=== PATIENT | female | born 1985 | race Caucasian/White ===

== ENCOUNTER 2017-08-22 23:50 | Emergency (ER) | payer OTHER ==
[~2017-08-22] VITALS: Ht 175.3 cm; Wt 61.4 kg
[~2017-08-22 23:50] MED LIST: MECL-114 PO; MULT-1018 PO; PROM25TA14 PO
[2017-08-22 23:52] VITALS: BP 109/70; PULSE 83; RESP 18; O2SAT 96
--- NOTE | 2017-08-23 00:40 | ED.REPORT ---
HPI- Female Date of Service Aug 23, 2017 ED Provider: Abdoul Díaz MD Pt is a 32 year old female with a history of Lichen sclerosus who presents to the ED c/o left vulva pain onset 1-2 days. Additional symptoms include left vulva swelling, abdominal pain, and vaginal discharge. She denies any fevers. Pt has gone to a doctor recently for her chronic yeast infections, and her doctor thought she might have endometriosis but denied genital herpes. Nursing Notes Stated Complaint: VAGINAL PAIN/SWELLING Chief Complaint: Female Abdominal Pain Nursing Notes Reviewed: Yes Allergies: Coded Allergies: Penicillins (Verified Allergy, Intermediate, HIVES, 08/23/17) latex (Verified Allergy, Intermediate, Hives, 08/23/17) ondansetron (Verified Allergy, Intermediate, HIVES, 08/23/17) Scheduled Meclizine (Bonine) 25 Mg Tab.chew 25 MG PO TID Multivitamin (Multi Vitamin Daily) 1 Each Tablet 1 EACH PO DAILY Scheduled PRN Promethazine (Promethazine) 25 Mg Tablet 25 MG PO Q6H PRN PRN For Nausea General Time Seen by MD: 00:39 Chief Complaint Vulva pain left Hx Obtained From: Patient Arrived By: Walk-in Sudden in Onset?: Yes Onset Occurred: Yesterday Symptom Duration: Constant Quality: Painful Severity: Current: Mild Severity: Maximum: Moderate Recent Healthcare: Recent doctor visit Similar Sx Previous: Yes Past Medical History Past Medical History Notes: PCP: naturopathic clinic in [facility] Past Medical History Celiac disease Lichen planus Lichen sclerosus Past Surgical History Breast augmentation Smoking History Never Smoker Social History Other Social History: Ambulatory Status Independent Review of Systems Left vulva pain Left vulva swelling Constitutional: Denies: Fever GI: Reports: Abdominal pain Female: Reports: Vaginal discharge Complete sys rev & neg: except as marked. Physical Exam Initial Vital Signs Vital Signs (First) Date Time Temp Pulse Resp B/P Pulse Ox O2 Delivery O2 Flow Rate FiO2 08/22/17 23:52 36.8 83 18 109/70 96 Room Air Initial VS: Reviewed, Vital signs normal Head / Eyes: Atraumatic, Normocephalic Neck: Supple, Full range of motion Respiratory: No respiratory distress Extremities: Vascular intact, Neuro intact, No swelling, No tenderness Skin: Warm, Dry, No cyanosis Neurologic: Alert, Oriented, Nonfocal Psychiatric: Mood/affect normal, Behavior normal, Normal thought content Female Genitourinary: No bleeding Mild swelling and tenderness to left vulva, no erythema General/Constitutional: Awake, Alert Interpretation & Diagnostics Lab Results Interpretation Test 08/23/17 00:24 Hold Urine Received (Received) Re-Eval/Medical Decision Med Decision/Clinical Course 32-year-old female with a history of vulvar lichen sclerosis presents with left labial swelling. This does not seem to be associated with the lichen sclerosis as there are no skin changes. I suspect the mild cellulitis and will treat with antibiotics. Source of Hx: Old records Re-Evaluation/Progress : Time of Eval: 01:02 Patient Status: Condition improved Re-Evaluation/Progress Note: Patient rechecked. Discussed plan for discharge. Patient understands and agrees with plan. F/U instructions and RTER warnings given. All questions addressed at this time. Counseled Regarding: Diagnosis, Lab results, Need for follow-up, When/why to return to ED Discharge & Departure Impression: Primary Impression: Cellulitis of labia majora Disposition: Home Discharge Condition All VS Reviewed: Yes Condition: Stable Patient Instructions: Cellulitis (ED) Additional Instructions: There is swelling and inflammation of the left labia majora, possibly an infection. This does not appear to be from your lichen sclerosis. Recommend doxycycline 100 mg by mouth twice a day, #20 dispensed. Avoid excessive sun exposure with this medication. Follow-up with your primary doctor in the next week or so for recheck. Return to emergency room if there is significant worsening, if you develop fever, or if an abscess forms. Referrals: Roberto Escalante MD (PCP) Scribe Attestation Portions of this note were transcribed by Jaycee Fernando. I, Dr. Díaz, personally performed the history, physical exam and medical decision-making; I reviewed and confirmed the accuracy of the information in the transcribed note. copies to: Roberto Escalante MD, Abdoul Negron MD Aug 23, 2017 00:40 Jaycee Fernando Aug 23, 2017 00:58
[2017-08-23] MEDS ORDERED: Mupirocin 2% 22 Gm Ointment TOPICAL ONE (01:25)
[2017-08-23 01:34] VITALS: BP 104/64; PULSE 67; RESP 16; O2SAT 96
[2017-08-23] MEDS ORDERED: _Doxycycline 100 mg Tablet PO SCH (08:30)
== END 2017-08-23 01:35 | disposition home or self-care (01) ==
LOC: SED 23:50
DX: N76.4 Abscess of vulva (principal); Z88.0 Allergy status to penicillin; Z91.040 Latex allergy status; Z88.8 Allergy status to other drugs, medicaments and biological substances